=== PATIENT | male | born 1940 | race Caucasian/White ===

== ENCOUNTER → 2017-04-05 | Outpatient (REF) | payer OTHER ==
[~2017-04-05] MED LIST: /WARF5TA PO; /ZIAC5TA PO; AUGM875T27 PO; CLIN300C PO; OMEP40CA2 PO; TYLE325T5 PO; ZEST20TA8 PO
[2017-04-05 12:33] LABS: INR 0.99
== END ==
LOC: M LAB REF 12:20
PROVIDERS: ATTEND Internal Medicine
DX: M10.9 Gout, unspecified (principal); I87.009 Postthrombotic syndrome without complications of unspecified extremity

== ENCOUNTER → 2017-07-11 | Outpatient (REF) | payer OTHER ==
[2017-07-12 15:05] LABS: URIC ACID 7.5 MG/DL (3.5-7.2)
== END ==
LOC: M LAB REF 13:45
DX: M10.9 Gout, unspecified (principal)
CPT/HCPCS: 84550

== ENCOUNTER 2017-07-16 16:54 | Emergency (ER) | payer OTHER | END 2017-07-16 21:13 | disposition home or self-care (01) | LOC: M ED 16:54 | DX: S76.112A Strain of left quadriceps muscle, fascia and tendon, initial encounter (principal); W00.9XXA Unspecified fall due to ice and snow, initial encounter; Y92.410 Unspecified street and highway as the place of occurrence of the external cause; Z79.899 Other long term (current) drug therapy | CPT/HCPCS: 99284 ==

== ENCOUNTER → 2018-06-13 | Outpatient (REF) | payer OTHER ==
[2018-06-13 13:40] LABS: URIC ACID 6.3 MG/DL (3.5-7.2)
== END ==
LOC: M LAB REF 12:15
DX: M10.9 Gout, unspecified (principal)
CPT/HCPCS: 84550

== ENCOUNTER → 2018-08-14 | Outpatient (REF) | payer OTHER ==
[2018-08-16 18:42] LABS: Lyme Disease IgG/IgM Antibodie <0.91 ISR (0.00-0.90); Lyme Disease IgM Ab Quantitati <0.80 index (0.00-0.79)
== END ==
LOC: M LAB REF 12:17
PROVIDERS: ATTEND Internal Medicine
DX: M25.50 Pain in unspecified joint (principal)

== ENCOUNTER → 2018-12-18 | Outpatient (REF) | payer OTHER ==
[~2018-12-18] MED LIST changes: -/WARF5TA PO; -/ZIAC5TA PO; +COUM1TAB17 PO; +ZIAC1TAB PO
== END ==
LOC: M LAB REF 12:09
PROVIDERS: ATTEND Internal Medicine
DX: M10.9 Gout, unspecified (principal)

== ENCOUNTER → 2019-03-22 | Outpatient (REF) | payer OTHER | LOC: M LAB REF 18:16 | PROVIDERS: ATTEND Internal Medicine | DX: M10.9 Gout, unspecified (principal) ==

== ENCOUNTER → 2019-04-19 | Outpatient (REF) | payer MEDICARE ==
[2019-04-19 13:47] LABS: C REACTIVE PROTEIN QUANTITATIV 0.71 MG/DL (0.00-0.30); RHEUMATOID FACTOR QUANT < 10.0 IU/ML (<15.0)
[2019-04-20 14:22] LABS: ANTINUCLEAR ANTIBODIES DIRECT Negative (Negative)
== END ==
LOC: M LAB REF 12:25
PROVIDERS: ATTEND Internal Medicine
DX: M79.10 Myalgia, unspecified site (principal)

== ENCOUNTER → 2019-09-24 | Outpatient (REF) | payer MEDICARE | LOC: M LAB REF 16:22 | PROVIDERS: ATTEND Internal Medicine | DX: M10.9 Gout, unspecified (principal) ==

== ENCOUNTER → 2020-06-18 | Outpatient (REF) | payer MEDICARE | LOC: M LAB REF 16:10 | PROVIDERS: ATTEND Internal Medicine | DX: M25.571 Pain in right ankle and joints of right foot (principal); M15.9 Polyosteoarthritis, unspecified ==

== ENCOUNTER → 2020-10-27 | Outpatient (REF) | payer MEDICARE | LOC: M LAB REF 12:04 | PROVIDERS: ATTEND Internal Medicine | DX: M10.9 Gout, unspecified (principal) ==

== ENCOUNTER → 2021-02-11 | Outpatient (CLI) | payer MEDICARE ==
--- NOTE | 2021-02-11 14:56 | REP ---
INDICATION: PAIN/SWELLING RT LOWER LEG. COMPARISON: None. TECHNIQUE: Duplex right lower extremity FINDINGS: Venous duplex examination of the right lower extremity shows no evidence of thrombosis above or below the knee. There is a 6 x 5 cm popliteal cyst. IMPRESSION: No evidence of deep venous thrombosis in the left lower extremity. <Electronically signed by Cali Carrasco > 02/11/21 [id number]
== END ==
LOC: M RAD 13:39
PROVIDERS: ATTEND Internal Medicine
DX: Z86.718 Personal history of other venous thrombosis and embolism (principal); M25.551 Pain in right hip

== ENCOUNTER → 2022-02-04 | Outpatient (CLI) | payer MEDICARE | LOC: M RAD 09:53 | PROVIDERS: ATTEND Internal Medicine | DX: M25.561 Pain in right knee (principal); R22.41 Localized swelling, mass and lump, right lower limb ==

== ENCOUNTER 2022-10-27 09:40 | Day surgery (SDC) | payer MEDICARE ==
[~2022-10-27] VITALS: Ht 177.8 cm; Wt 97.7 kg
[~2022-10-27 09:40] MED LIST changes: +GLIP10TA18 PO; +LISI20TA33 PO; +NS 1,000 ML IV ONE; +XARE20TA PO
[2022-10-27] MEDS ORDERED: propofoL 200 MG/20 ML VIAL As Ordered ONE (10:20)
[2022-10-27] MEDS ORDERED: LIDOCAINE 2% 100MG/5ML SDV (FOR ANES.) As Ordered ONE (10:20)
[2022-10-27] MEDS ORDERED: LABETALOL 100MG/20ML VIAL As Ordered ONE (10:24)
[2022-10-27] MEDS ORDERED: SIMETHICONE 80MG CHEW TAB PO ONE (11:10)
[2022-10-27 11:25] VITALS: BP 161/74
== END 2022-10-27 11:28 | disposition home or self-care (01) ==
LOC: M OPP 09:40
PROVIDERS: ATTEND Surgery
DX: R19.5 Other fecal abnormalities (principal); Z79.84 Long term (current) use of oral hypoglycemic drugs; Z79.899 Other long term (current) drug therapy; Z88.2 Allergy status to sulfonamides

== ENCOUNTER → 2024-03-06 | Outpatient (REF) | payer MEDICARE, OTHER ==
[~2024-03-06] MED LIST changes: -NS 1,000 ML IV ONE
== END ==
LOC: M LAB REF 11:45
PROVIDERS: ATTEND Internal Medicine
DX: M10.9 Gout, unspecified (principal)

== ENCOUNTER 2024-08-07 16:26 | Emergency (ER) | payer OTHER, MEDICARE ==
[~2024-08-07] VITALS: Ht 177.8 cm; Wt 99.6 kg
[2024-08-07] MEDS ORDERED: HYDR-3713 PO (17:33)
[2024-08-07 18:01] VITALS: BP 171/81; TEMP 96.7; O2SAT 96
== END 2024-08-07 18:16 | disposition home or self-care (01) ==
LOC: M ED 16:26
DX: S20.222A Contusion of left back wall of thorax, initial encounter (principal); Y92.9 Unspecified place or not applicable; Y93.9 Activity, unspecified; Y99.0 Civilian activity done for income or pay; W01.0XXA Fall on same level from slipping, tripping and stumbling without subsequent striking against object, initial encounter; I10 Essential (primary) hypertension; Z88.2 Allergy status to sulfonamides; Z79.1 Long term (current) use of non-steroidal anti-inflammatories (NSAID); Z79.84 Long term (current) use of oral hypoglycemic drugs; Z79.899 Other long term (current) drug therapy; Z79.01 Long term (current) use of anticoagulants

== ENCOUNTER → 2025-02-12 | Outpatient (REF) | payer MEDICARE ==
[~2025-02-12] MED LIST changes: +GLIP-320 PO; -GLIP10TA18 PO; +HYDR-3713 PO
[2025-02-13 09:42] LABS: LDL DIRECT 95 mg/dL (<100)
== END ==
LOC: M LAB REF 12:08
PROVIDERS: ATTEND Internal Medicine
DX: E78.00 Pure hypercholesterolemia, unspecified (principal)